=== PATIENT | male | born 1990 | race Caucasian/White ===

== ENCOUNTER → 2024-09-13 09:57 | Outpatient (REF) | payer BC, SELFPAY ==
[2024-09-13 11:19] LABS: ALT (SGPT) 29 U/L (0-50); AST (SGOT) 26 U/L (17-59); Alkaline Phosphatase 52 U/L (38-126); Blood Urea Nitrogen 14 mg/dl (9-20); Calcium 9.8 mg/dl (8.4-10.2); Carbon Dioxide 30 mmol/L (22-30); Chloride 103 mmol/L (98-107); Glucose 100 mg/dl (70-99); HDL Cholesterol 49 mg/dl; LDL Cholesterol, Calculated 122 mg/dl; Sodium 141 mmol/L (135-145); Total Bilirubin 1.7 mg/dl (0.2-1.3); Total Cholesterol 186 mg/dl (50-199); Total Protein 7.7 g/dl (6.3-8.2); Triglyceride 77 mg/dl (10-149); Very Low Density Lipoprotein 15 mg/dl (0-30); eGFR > 60.00
== END ==
LOC: REG 09:57
PROVIDERS: ATTENDING PHYSICIAN Internal Medicine
DX: Z00.00 Encounter for general adult medical examination without abnormal findings (principal); Z00.8 Encounter for other general examination
CPT/HCPCS: 36415; 80053; 80061